=== PATIENT | female | born 1955 | race Caucasian/White ===

== ENCOUNTER 2019-10-10 20:55 | Emergency (ER) | payer OTHER ==
[~2019-10-10] VITALS: Ht 152.4 cm; Wt 61.2 kg
[2019-10-10 21:16] LABS: URINE BILIRUBIN NEGATIVE (Negative); URINE BLOOD TRACE (Negative); URINE CLARITY CLEAR; URINE COLOR YELLOW; URINE GLUCOSE-RANDOM* 2+ (Negative); URINE KETONES NEGATIVE (Negative); URINE LEUKOCYTES-REFLEX NEGATIVE (Negative); URINE NITRITE-REFLEX NEGATIVE (Negative); URINE PROTEIN (DIPSTICK) 2+ (Negative); URINE SPECIFIC GRAVITY 1.015 (1.005-1.035); URINE UROBILINOGEN 0.2 E.U./dl (0.2-1.0)
[2019-10-10 21:24] LABS: BACTERIA-REFLEX 1-9 Few /HPF (None Seen); CASTS None Seen /LPF (None Seen); CRYSTALS None Seen /LPF (None Seen); SQUAMOUS 0-3 Few /LPF (0-3); URINE RBC 0-2 Rare /HPF (0-2); URINE WBC-REFLEX None Seen /HPF (0-5)
[2019-10-10] MEDS ORDERED: LANTUS SUBQ (21:29)
[2019-10-10 21:58] LABS: BASOPHILS 0.6 % (0.0-2.0); EOSINOPHILS 1.8 % (0.0-3.0); HEMATOCRIT 33.3 % (37.0-47.0); HEMOGLOBIN 10.9 gm/dL (12.0-15.0); LYMPHOCYTES 38.8 % (24.0-44.0); MCH 29.3 pg (26.0-34.0); MCHC 32.7 g/dL (28.0-37.0); MCV 89.6 fL (80.0-100.0); MONOCYTES 7.5 % (1.0-8.0); PLATELET COUNT 132 thou/uL (150-400); POLYS 51.3 % (36.0-66.0); RBC 3.72 mil/uL (4.20-5.00); RDW 13.1 % (10.5-14.5)
[2019-10-10 22:00] LABS: ANION GAP 4 mmol/L (7-16); BUN 21 mg/dL (7-18); CHLORIDE 99 mmol/L (98-107); CO2 32 mmol/L (21-32); CREATININE 1.1 mg/dL (0.6-1.0); GLUCOSE 236 mg/dL (74-106); POTASSIUM 3.7 mmol/L (3.5-5.1); SODIUM 135 mmol/L (136-145)
[2019-10-10 22:10] LABS: ALBUMIN 2.8 g/dL (3.4-5.0); LIPASE 207 U/L (73-393); SGOT 79 U/L (15-37); SGPT 90 U/L (30-65); TOTAL BILIRUBIN 0.2 mg/dL (<0.1-1.0); TROPONIN-I <0.06 ng/mL (<0.06)
[2019-10-10] MEDS ORDERED: PRILOSEC OTC20 MG PO (23:06)
[2019-10-10] MEDS ORDERED: ZOFRAN ODT4 MG PO (23:06)
[2019-10-10] MEDS ORDERED: TOPROL XL50 MG PO (23:06)
[2019-10-10] MEDS ORDERED: QUINU10 PD PO (23:06)
[2019-10-10] MEDS ORDERED: CIPRO500 M1 PO (23:10)
[2019-10-10 23:26] VITALS: BP 178/90
--- NOTE | 2019-10-13 16:00 | EKG ---
[place] [address] [address] [facility] [employer] [address] ELECTROCARDIOGRAM REPORT Name: SAQIB MCCLOUD Room #: [facility] Chantelle#: [id number] Admission: 10/10/19 Attend Phys: Discharge: 10/10/19 Date of : 59 Report #: [id number] THIS REPORT FOR: //name// [facility] ED Test Date: 2019-10-10 Test Time: 21:38:06 Pat Name: SAQIB MCCLOUD Department: Room: Gender: F Financial Sales Assistant: nanda schneider : 1955 Requested By: Karla Figueroa Order Number: [id number] MD: Bennett Ramsay Measurements Intervals [place] Rate: 68 P: 36 MS: 160 QRS: 12 QRSD: 86 T: 72 QT: 433 QTc: 461 Interpretive Statements Sinus rhythm Probable left atrial enlargement Borderline T wave abnormalities No previous ECG available for comparison Electronically Signed On 10-13-2019 16:00:08 PROFESSOR OF [employer]UDIES by Bennett Ramsay [email or web address] <ELECTRONICALLY SIGNED> By: Bennett Ramsay MD 10/13/191599 37 213 Bennett Ramsay MD /RADHA
== END 2019-10-10 23:30 | disposition home or self-care (01) ==
LOC: ER 20:55
PROVIDERS: Nurse Practitioner Family
DX: N39.0 Urinary tract infection, site not specified (principal); I10 Essential (primary) hypertension; E11.9 Type 2 diabetes mellitus without complications; E03.9 Hypothyroidism, unspecified; E78.5 Hyperlipidemia, unspecified; Z91.14 Patient's other noncompliance with medication regimen